=== PATIENT | female | born 1965 | race Caucasian/White ===

== ENCOUNTER 2023-07-22 16:46 | Inpatient (IN) | payer BC, SELFPAY ==
[2023-07-22] VITALS (8 sets, daily range): BP systolic 133–167; BP diastolic 76–99; BMI 23.1
[2023-07-22 12:57] LABS: % Basophils 0.2 % (0-2); % Immature Granulocytes 0.5 % (0-0.5); % Lymphocytes 6.3 % (20.5-51.1); % Monocytes 4.8 % (1.7-9.3); % Neutrophils 88.2 % (42.2-75.2); Absolute Basophils 0.1 10^3/uL (0-0.2); Absolute Immature Granulocytes 0.1 10^3/uL (0-0.05); Absolute Lymphocytes 1.4 10^3/uL (1.2-3.4); Absolute Monocytes 1.1 10^3/uL (0.1-0.6); Absolute Neutrophils 19.3 10^3/uL (1.4-6.5); Hematocrit 41.1 % (37.0-47.0); Hemoglobin 14.9 g/dL (12.0-16.0); Mean Corp Hgb Conc. 36.3 g/dL (33.0-37.0); Mean Corpuscular Hgb 30.9 pg (27.0-31.0); Mean Corpuscular Volume 85.3 fL (81.0-99.0); Mean Platelet Volume 10.8 fL (7.4-10.4); Nucleated Red Blood Cells % 0 %; Platelet Count 310 10^3/uL (130-400); Red Blood Cell Count 4.82 10^6/uL (4.20-5.40); Red Cell Dist. Width 13.2 % (11.5-14.5); White Blood Cell Count 21.9 10^3/uL (4.8-10.8)
[2023-07-22 13:10] LABS: HCG, Serum Qualitative Screen Negative
[2023-07-22 13:13] LABS: ALT (SGPT) 20 U/L (0-35); AST (SGOT) 26 U/L (14-36); Albumin 4.5 g/dl (3.5-5.0); Alkaline Phosphatase 81 U/L (38-126); Blood Urea Nitrogen 24 mg/dl (7-17); Calcium 9.6 mg/dl (8.4-10.2); Carbon Dioxide 21 mmol/L (22-30); Chloride 106 mmol/L (98-107); Glucose 132 mg/dl (70-99); Lipase 32 U/L (23-300); Sodium 137 mmol/L (135-145); Total Bilirubin 1.2 mg/dl (0.2-1.3); Total Protein 7.4 g/dl (6.3-8.2); eGFR > 60.00
[2023-07-22] MEDS: ZOFRAN 4 MG IV (13:50)
[2023-07-22] MEDS: DILAUDID 1 MG IV (13:50)
[2023-07-22] MEDS: NSS 2000 IV (13:50)
--- NOTE | 2023-07-22 14:32 | ED.GENMED ---
History of Present Illness
General
Chief Complaint: Abdominal Pain
Source: patient and family
Exam Limitations: clinical condition
Time Seen by Provider: 07/22/23 13:32
Nursing documentation reviewed up to this point in time: agreed with
Travel History
Have you had any contact with someone who has COVID-19?: No
Do you have any symptoms of coronavirus? Fever > 100 degrees, chills, cough, shortness of breath, sore throat, loss of taste or smell, muscle aches, or headache?: No
History of Present Illness
History of Present Illness:
pt is a 57 y/o F with h/o HTN
no previous abd surgeries
here with n/v/d that started yesterday afternoon
details are sparce, pt does not feel well and is in distress
she thinks she has vomited > 50 times
bilious emesis at the end
no blood in vomit
she has had a lot of watery diarrhea as well
no C diff RF
no h/o bowel problems
having diffuse abdominal pain and feels very dehdyratied
no fever/chills.
Past History
Past History
ED Past Medical History: HTN
ED Past Surgical History: None
Social History
Tobacco: Non-smoker
Alcohol: None
Drug: None
Personal:
Living: with family
Review of Systems
Review of Systems
Allergies reviewed?: Yes
All Other Systems: Not applicable
Phy Exam
Physical Exam
Physical Exam:
GENERAL: Alert , moaning, uincomfortable, moderate distress
EYE: pupils equal and reactive
NECK: Supple
ENT: o/p clr, very dry mouth
CARDIAC: Regular rate and rhythm .
LUNGS: Clear breath sounds bilaterally, no acute respiratory distress, no wheezes/rales/rhonchi
ABDOMEN: Soft, diffuse, more upper and lower , no r/g, no cvat, normal bowel sounds
NEUROLOGICAL: Alert and oriented, no focal neuro deficits
SKIN: Warm and dry, skin intact.
MUSCULOSKELETAL: No edema, well perfused.
PSYCH: Normal and appropriate interaction.
Course
Orders/Labs/Results
Orders:
Orders
07/22/23 Lunch
NPO
Allow oral meds: Yes
Allow clear liquids: Sips of Clears
NPO with Ice Chips: Yes
07/22/23 12:47
Test Result ONCE
07/22/23 12:48
Complete Blood Count/With Diff Urgent
Comprehensive Metabolic Panel Urgent
HCG, Serum Qualitative Screen Urgent
Lipase Urgent
07/22/23 13:46
CT Abd/Pel (IV only)-DH only Urgent
Comment:
Reason For Exam: severe nausea/vomiting/diarrhea
HYDROmorphone [Dilaudid] 1 mg IV NOW STA
Ondansetron Injectable [Zofran] 4 mg IV NOW STA
07/22/23 13:47
STOOL [C difficile Antigen & Toxins] Urgent
JANA Source: Feces/Stool
Specimen Description:
Date Specimen was Collected: 07/22/23
Time Specimen was Collected: 16:21
0.9% Sodium Chloride 1000 ml [Nss] 2,000 ml IV BOLUS
07/22/23 13:48
Norovirus by PCR Urgent
JANA Source: Feces/Stool
Specimen Description:
Date Specimen was Collected: 07/22/23
Time Specimen was Collected: 16:21
07/22/23 15:16
Lactic Acid Urgent
07/22/23 15:55
Ampicillin/Sulbactam 3 G [Unasyn] 3 gm 0.9% Sodium Chloride 100 ml [Nss] 100 ml IV NOW
07/22/23 16:26
Stool Culture Urgent
JANA Source: Feces/Stool
Specimen Description:
Date Specimen was Collected: 07/22/23
Time Specimen was Collected: 16:21
07/22/23 16:35
Admit/Transfer Patient As Directed
Co-Sign Provider:
Level of Care: Inpatient admission
Assign to:: Medical/Surgical
Physician / Group: Hospitalist
Diagnosis: Acute colitis
Reason for Hospitalization: Severe colitis
Expected length of stay greater than two midnights?: Yes
ELOS- Estimated Length of Stay in days: 2
I certify the patient meets the requirements for IP care: Yes
07/22/23 16:36
Code Status As Directed
Resuscitation Status: Full Code
07/22/23 18:11
Acetaminophen [Tylenol] 650 mg PO Q4HPRN PRN
Dextrose 5%/Lactringers 1000ML [D5lr] 1,000 ml IV 125 mls/hr
Enoxaparin Sodium [Lovenox] 40 mg SC QPM
HYDROmorphone [Dilaudid] 0.5 mg IV Q4HPRN PRN
Ketorolac [Toradol] 10 mg IV Q6HPRN PRN
Ondansetron Injectable [Zofran] 4 mg IV Q6HPRN PRN
07/22/23 18:11
Activity As Directed
Activity Level: With Assistance
Vital Signs As Directed
Frequency: Per unit guidelines
DX Deep Vein Thrombosis Video Routine
07/22/23 22:00
Ampicillin/Sulbactam 3 G [Unasyn] 3 gm 0.9% Sodium Chloride 100 ml [Nss] 100 ml IV Q6H
07/23/23 06:00
Basic Metabolic Panel IN AM
Complete Blood Count/No Diff IN AM
07/23/23 08:00
Lisinopril [Zestril] 20 mg PO DAILY
Abnormal Lab Results
07/22/23
12:48
WBC 21.9 H 10^3/uL
(4.8-10.8)
MPV 10.8 H fL
(7.4-10.4)
Abs Immat Gran (auto) 0.1 H 10^3/uL
(0-0.05)
Absolute Neuts (auto) 19.3 H 10^3/uL
(1.4-6.5)
Absolute Monos (auto) 1.1 H 10^3/uL
(0.1-0.6)
Neutrophils % 88.2 H %
(42.2-75.2)
Lymphocytes % 6.3 L %
(20.5-51.1)
Carbon Dioxide 21 L mmol/L
(22-30)
BUN 24 H mg/dl
(7-17)
Glucose 132 H mg/dl
(70-99)
07/22/23 12:48
07/22/23 12:48
Vital Signs
Initial and Last Documented VS:
Initial Vital Signs
Temp
98.7 F
07/22/23 12:43
Last Documented Vital Signs
Temp Pulse Resp BP Pulse Ox
97.5 F 76 16 164/97 100
07/22/23 18:15 07/22/23 18:15 07/22/23 18:15 07/22/23 18:15 07/22/23 18:15
MDM/Problems Addressed
Differential Diagnosis Includes:
colitis, norovirus, c diff
MDM/Problems Addressed:
57 y/o F with n/v/d and abd pain since last night
severe vomiting and moderate diarrhea
severe abdominal pain
no fever
no rf for C diff
mild tendneress nonfocal on exam
very dry mm
wbc 21k
bicarb 21
ct shows severe colitis
stool studies pending
will admit
*Critical Care Note
Total Time (30-74mins, 75-104mins- exclusive of procedures): Not Applicable
ED Attending Note
-
Portions of this chart may have been created with voice recognition software.� Occasional wrong word or��sound alike� substitutions may have occurred due to the inherent limitations of voice recognition software.
Discharge Plan
Departure
Patient Disposition: Admit
Date of Disposition: 07/22/23
Time of Disposition: 14:57
Admit to: Med/Surg
Presentation/result/management discussed w/ accepting MD/DO: Hospitalist
Condition: Fair
Covid-19: Not Applicable
Discharge Problem:
Colitis
Interventions
Interventions:
*Risk Screen - Suicide Last Done: 07/22/23 18:45
*General Assessment Last Done: 07/22/23 12:43
*Neglect/Abuse Screening Last Done: 07/22/23 12:43
ED- Fall Risk Assessment Last Done: 07/22/23 12:43
*ED COVID-19 Vaccine History Last Done: 07/22/23 18:45
*Nursing Disposition Last Done: 07/22/23 17:33
WZ-Zeheqd-Vegyqtoaxr Assessment Last Done: 07/22/23 12:43
Discharge Date and Time
Discharge Date/Time: 07/22/23 18:09
--- NOTE | 2023-07-22 16:15 | HPS.HSE ---
Family Physician
-
Family Physician: Rodri Gibbs
Chief Complaint
-
Nausea vomiting diarrhea abdominal pain
History of Present Illness
This is a 57-year-old female with past medical history significant for hypertension presenting to the emergency department with 1 day of abdominal symptoms.
Patient reports sudden onset of nausea and vomiting yesterday at around the time. She went to the bathroom and bathroom in the bathroom for several hours due to continuous vomiting. She then started having watery diarrhea and reports having
multiple episodes over the last 24 hours. It was nonbloody. Vomiting nonbloody and nonbilious. She reported chills but no darlene fevers at home. She reports abdominal pain in the epigastric region as well as in the bilateral lower quadrants.
Denies any sick contacts. No recent travels. She denies any recent antibiotic use. She denies any recent sensation. She has no personal history of cancer. She is not on any immunosuppressants. Family hx notable for daughter with Crohns
colitis.
She had a colonoscopy within the last 4 years. Denies any h/o diverticular disease. No intraabdominal surgeries. Unable to tolerate po in last 24 hours and reports feeling parched.
Arrival in the emergency department she was afebrile, normotensive and tachycardic to the low 100s. Oxygen saturation was 95 to 100% on room air. Labs were notable for a leukocytosis of 21,000 with a normal hemoglobin and platelet count.
Chemistries with essentially unremarkable. Lactic acid was normal at 1.0.
The CTA of the abdomen and pelvis with contrast shows a severe left-sided colitis.
Medical History
Past Medical History
Past Medical History: Reports HTN
Past Surgical History: Reports None
Social History
Tobacco: Non-smoker
Alcohol: Occasional
Drug: None
Personal:
Living: With Family
Employment: Employed
Family History
Family History: Diabetes and Other (Daughter with Crohns colitis. )
Allergies / Home Medications
Allergies reflects when Allergies were last updated in [facility].
Home Medications with original date entered in [facility]
Allergy/Medication List:
Allergies
Allergy/AdvReac Type Severity Reaction Status Date / Time
No Known Allergies Allergy Unverified 07/22/23 12:42
Home Medications
lisinopril 20 mg tablet 20 mg PO DAILY 07/22/23
Review of Systems
-
History Source: Patient
Constitutional: Reports No Symptoms
EENT: Reports No Symptoms
Respiratory: Reports No Symptoms
Cardiac: Reports No Symptoms
Abdomen/GI: Reports Abdominal Pain, Nausea, Vomiting and Diarrhea
: Reports No Symptoms
Musculoskeletal: Reports No Symptoms
Skin: Reports No Symptoms
Neurological: Reports No Symptoms
Endocrine: Reports No Symptoms
Hematologic/Lymphatic: Reports No Symptoms
Psych: Reports No Symptoms
Physical Exam
Vital Signs
Vital Signs
Temp Pulse Resp BP Pulse Ox
98.7 F 86 18 141/83 85
07/22/23 12:43 07/22/23 14:00 07/22/23 14:00 07/22/23 14:00 07/22/23 14:00
Physical Exam
General: Well Developed, Well Nourished, Comfortable and Conversant
HEENT: NormoCephalic, Anicteric, Moist mucous membranes, PERRLA and [place] Conjunctivae
Respiratory: Clear
Cardiac: S1/S2 and Tachycardia
Breast: Deferred by me
GI: Soft, Non Distended, Normal Bowel Sounds and Tender
Rectal: Deferred by Provider
Genito-urinary: Deferred by me
Musculoskeletal: No Clubbing, No Cyanosis and No Edema
Skin: Warm and Dry
Neuro: AO x 3
Hematologic/Lymphatic: No Lymphadenopathy
Psych: Calm
Laboratory Results
-
07/22/23 12:48
07/22/23 12:48
Laboratory Results
Lactic Acid 1.0 mmol/L (0.7-2.0) 07/22/23 15:16
Total Bilirubin 1.2 mg/dl (0.2-1.3) 07/22/23 12:48
AST 26 U/L (14-36) 07/22/23 12:48
ALT 20 U/L (0-35) 07/22/23 12:48
Alkaline Phosphatase 81 U/L (38-126) 07/22/23 12:48
Lipase 32 U/L (23-300) 07/22/23 12:48
Data Reviewed
-
CT Scan: Report Reviewed by me
Lab Data: Labs Reviewed by me
Old Records: Reviewed
Impression/Plan
-
IMPRESSION:
PLAN:
1. Acute left sided colitis - Patient with acute onset abdominal pain, nausea, vomiting and diarrhea. Tenderness to palpation without rebound or guarding. CT with severe colitis but no perforation or intraabdominal gas. Leukocytosis to 21.
Normal lactic acid. No known risk factors for community acquired intraabdominal infection. Hemodynamically stable and afebrile at this time. Suspect acute infectious colitis of bacterial or viral etiology. Less likely inflammatory colitis. No
h/o diverticular disease. No bleeding suggestive of ischemic colitis.
- admit to [facility]
- NPO except ICE chips and oral meds with sips of water for now
- Stool culture, wbc and Cdiff, check for norovirus (unlikely)
- agree with continuing Unasyn given possibility of bacterial colitis.
- serial examination
- blood cultures and repeat imaging if febrile
- IV fluids with LR at 125 ml/hr for now
- continue lisinopril in am
DVT PPX with lovenox sq
Full code
[2023-07-22] MEDS: UNASYN IV ×2 (16:28→21:46)
--- NOTE | 2023-07-22 17:32 | EDRN ---
float: report written and tubed to [facility] for primary nurse. [facility] staff notified by phone.
[2023-07-22] MEDS: D5LR 1000 IV (18:37)
[2023-07-22] MEDS: LOVENOX 40 MG SC (19:40)
[2023-07-22] MEDS: DILAUDID 0.5 MG IV (19:40)
[2023-07-23] MEDS: DILAUDID 0.5 MG IV ×2 (01:57→20:53)
[2023-07-23] MEDS: D5LR 1000 IV (03:50)
[2023-07-23] MEDS: UNASYN IV (03:50)
[2023-07-23 07:29] LABS: Hematocrit 34.8 % (37.0-47.0); Hemoglobin 11.9 g/dL (12.0-16.0); Mean Corp Hgb Conc. 34.2 g/dL (33.0-37.0); Mean Corpuscular Hgb 30.8 pg (27.0-31.0); Mean Corpuscular Volume 90.2 fL (81.0-99.0); Mean Platelet Volume 11.3 fL (7.4-10.4); Platelet Count 210 10^3/uL (130-400); Red Blood Cell Count 3.86 10^6/uL (4.20-5.40); Red Cell Dist. Width 13.7 % (11.5-14.5); White Blood Cell Count 16.1 10^3/uL (4.8-10.8)
[2023-07-23 07:54] VITALS: BP 160/93
[2023-07-23 08:04] LABS: Blood Urea Nitrogen 11 mg/dl (7-17); Calcium 8.2 mg/dl (8.4-10.2); Carbon Dioxide 25 mmol/L (22-30); Chloride 105 mmol/L (98-107); Estimated Creatinine Clearance 71 ml/min; Glucose 100 mg/dl (70-99); Potassium 3.4 mmol/L (3.5-5.1); Sodium 137 mmol/L (135-145); eGFR > 60.00
[2023-07-23] MEDS: TORADOL 10 MG IV ×2 (09:08→15:04)
[2023-07-23] MEDS: ZESTRIL 20 MG PO (09:08)
[2023-07-23] MEDS: 0.45% NACL with KCL 20 MEQ 1000 IV (09:10)
[2023-07-23] MEDS: ROCEPHIN 1000 MG IV (09:23)
[2023-07-23] MEDS: STERILE WATER FOR INJECTION 10 ML IV (09:23)
[2023-07-23] MEDS: FLAGYL 500 MG 100 IV ×3 (09:23→23:26)
[2023-07-23] MEDS: KCL 160 MEQ IV (11:15)
[2023-07-23 11:59] VITALS: BP 138/85
--- NOTE | 2023-07-23 13:12 | CM ---
Reviewed chart, called patient to obtain information for assessment. Patient stated that she lives with her spouse in a two story home with two steps to enter. She described herself as independent with her ADLs and personal care as well as dressing,
bathing and she ambulates without use of an assistive device. 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
Patient denied any DME in her home.
She has never had VN services. She has never been to a SNF.
Patient has a prescription plan and uses [facility] on [address] in [place].
Her PCP is Dr. Rodri Gibbs.
Patient stated that physically she feels she is at baseline and would like to return home when medically stable.
Plan: Case management will continue to follow and assist with discharge planning. Home when cleared.
[2023-07-23] MEDS: 0.45%NACL 1000 IV ×2 (13:26→21:37)
[2023-07-23] MEDS: TYLENOL 650 MG PO (13:26)
--- NOTE | 2023-07-23 15:04 | W.PN.HOSP.TC ---
Today's Communication/Plan
-
IV fluids, IV antibiotics.
Assessment / Plan
Assessment / Plan
Physical exam:
General: Acutely ill. Nontoxic.
HEENT: Normocephalic, Atraumatic and Moist Mucous Membranes
Respiratory: Clear to Auscultation; Negative Wheezes, Rales or Rhonchi
Cardiac: Regular Rhythm and S1/S2
GI: Soft, bowel sounds normal, mild diffuse tender and Nondistended
Musculoskeletal: No Clubbing, No Cyanosis and No Edema
Neuro: Awake, Alert and Oriented
Psych: Calm
A/P:
Acute likely infectious colitis:
-C. difficile negative
-Follow-up rest of stool cultures/studies.
-WBC 21.9-->16.1
-Seen and reviewed CT scan of the abdomen
-Supportive care with hydration, pain control, antibiotics, and antiemetics
-Patient tells me she had a colonoscopy about 4 years ago that was unremarkable per patient report.
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
-Continue IV fluid
-Continue n.p.o. and will start clear liquid diet tomorrow
-Continue IV antibiotics but switch to IV Rocephin and Flagyl
-Will give her some time to recover and we also discussed if she would fail to improve we would then consider GI evaluation.
-Discussed with family at bedside
Hypertension:
-Continue lisinopril 20 mg p.o. daily
-Monitor blood pressure and adjust medications accordingly
Hypokalemia:
-Replete and trend
Anemia:
-Dilutional component
-Hemoglobin 11.9
-Continue to monitor
DVT prophylaxis:
Lovenox SQ
CODE STATUS:
Full code
Anticipated Discharge: 24 - 48 hours
Subjective/Interval History
-
Date of Service: July 23, 2023
Patient still has some abdominal discomfort and some nausea and decreased appetite. Diarrhea slowing down. Afebrile. No arthralgias or any rash.
Objective Data
-
Labs:
Laboratory Results
07/23/23
05:54
WBC 16.1 H
Hgb 11.9 L D
Hct 34.8 L
Plt Count 210 D
Sodium 137
Potassium 3.4 L
Chloride 105
Carbon Dioxide 25
BUN 11
Creatinine 0.7
Glucose 100 H
Calcium 8.2 L
Vital Signs:
Vital Signs
Temp Pulse Resp BP Pulse Ox
99.7 F 88 16 138/85 99
07/23/23 07:54 07/23/23 07:54 07/23/23 07:54 07/23/23 11:59 07/23/23 07:54
I&O
07/22/23 07/23/23 07/24/23
06:59 06:59 06:59
Intake Total 1919
Balance 1919
Review of Systems
-
All other systems: Reviewed and negative
[2023-07-23 15:28] VITALS: BP 139/87
[2023-07-23] MEDS: LOVENOX 40 MG SC (17:53)
[2023-07-23 22:55] VITALS: BP 119/80
[2023-07-24] MEDS: 0.45%NACL 1000 IV (06:35)
[2023-07-24] MEDS: TORADOL 10 MG IV ×2 (06:42→16:07)
[2023-07-24 06:54] LABS: % Basophils 0.4 % (0-2); % Eosinophils 0.7 % (0-6); % Immature Granulocytes 0.5 % (0-0.5); % Lymphocytes 8.2 % (20.5-51.1); % Monocytes 7.4 % (1.7-9.3); % Neutrophils 82.8 % (42.2-75.2); Absolute Basophils 0.1 10^3/uL (0-0.2); Absolute Eosinophils 0.1 10^3/uL (0-0.7); Absolute Immature Granulocytes 0.1 10^3/uL (0-0.05); Absolute Monocytes 0.9 10^3/uL (0.1-0.6); Absolute Neutrophils 9.9 10^3/uL (1.4-6.5); Hematocrit 31.7 % (37.0-47.0); Hemoglobin 10.7 g/dL (12.0-16.0); Mean Corp Hgb Conc. 33.8 g/dL (33.0-37.0); Mean Corpuscular Hgb 30.6 pg (27.0-31.0); Mean Corpuscular Volume 90.6 fL (81.0-99.0); Mean Platelet Volume 11.5 fL (7.4-10.4); Nucleated Red Blood Cells % 0 %; Platelet Count 158 10^3/uL (130-400); Red Cell Dist. Width 13.4 % (11.5-14.5)
[2023-07-24 07:00] VITALS: BP 144/90
[2023-07-24 07:06] LABS: Blood Urea Nitrogen 10 mg/dl (7-17); Calcium 8.1 mg/dl (8.4-10.2); Carbon Dioxide 19 mmol/L (22-30); Chloride 107 mmol/L (98-107); Estimated Creatinine Clearance 71 ml/min; Glucose 62 mg/dl (70-99); Magnesium 1.9 mg/dl (1.6-2.3); Potassium 3.9 mmol/L (3.5-5.1); Sodium 136 mmol/L (135-145); eGFR > 60.00
--- NOTE | 2023-07-24 07:59 | W.PN.HOSP.TC ---
Addendum entered and electronically signed by Jaime Ferris MD 07/24/23 14:36:
Sepsis POA
Original Note:
Today's Communication/Plan
-
Change IV fluids to D5 and normal saline
Clear liquids today
Continue to monitor leukocytosis and electrolytes
Continue ceftriaxone and metronidazole
Await finalization of stool cultures
Assessment / Plan
Assessment / Plan
Physical exam:
General: Acutely ill. Nontoxic.
HEENT: Normocephalic, Atraumatic and Moist Mucous Membranes
Respiratory: Clear to Auscultation; Negative Wheezes, Rales or Rhonchi
Cardiac: Regular Rhythm and S1/S2
GI: Soft, bowel sounds normal, mild diffuse tender and Nondistended
Musculoskeletal: No Clubbing, No Cyanosis and No Edema
Neuro: Awake, Alert and Oriented
Psych: Calm
A/P:
Acute likely infectious colitis:
-C. difficile negative
-Follow-up rest of stool cultures/studies.
-WBC 21.9-->16.1>> 12.0
-Seen and reviewed CT scan of the abdomen
-Supportive care with hydration, pain control, antibiotics, and antiemetics
-Patient tells me she had a colonoscopy about 4 years ago that was unremarkable per patient report.
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
-Continue IV fluid
-Start clear liquids today
-Continue IV antibiotics but switch to IV Rocephin and Flagyl
-Will give her some time to recover and we also discussed if she would fail to improve we would then consider GI evaluation.
-Discussed with family at bedside
Hypertension:
-Continue lisinopril 20 mg p.o. daily
-Monitor blood pressure and adjust medications accordingly
Hypokalemia:
-Replete and trend
Anemia:
-Dilutional component
-Hemoglobin 11.9
-Continue to monitor
DVT prophylaxis:
Lovenox SQ
CODE STATUS:
Full code
Anticipated Discharge: 24 - 48 hours
Subjective/Interval History
-
Date of Service: July 24, 2023
Storms preparing especially when she coughs/couple loose bowel movements no fever or chills.
Objective Data
-
Labs:
Laboratory Results
07/24/23
05:59
WBC 12.0 H
Hgb 10.7 L
Hct 31.7 L
Plt Count 158 D
Sodium 136
Potassium 3.9
Chloride 107
Carbon Dioxide 19 L
BUN 10
Creatinine 0.7
Glucose 62 L
Calcium 8.1 L
Vital Signs:
Vital Signs
Temp Pulse Resp BP Pulse Ox
99.1 F 93 17 144/90 97
07/24/23 07:00 07/24/23 07:00 07/24/23 07:00 07/24/23 07:00 07/24/23 07:00
I&O
07/23/23 07/24/23 07/25/23
06:59 06:59 06:59
Intake Total 1919 1500 / 1500
Balance 1919 1500 / 1500
Review of Systems
-
History Source: Patient
Constitutional: Reports No Symptoms
EENT: Reports No Symptoms Reported
Respiratory: Reports No Symptoms
Abdomen/GI: Reports Abdominal Pain, Nausea, Diarrhea and Anorexia
Physical Exam
-
General: Well Developed
HEENT: Normocephalic
Respiratory: Clear to Auscultation
Cardiac: Regular Rhythm
GI: Soft and Tender (Left side)
Skin: Warm
Neuro: Awake, Alert and Oriented
Psych: Calm
Data Reviewed
-
Total Time Spent with Patient (in minutes): 56
Labs: Labs Reviewed by me (Bicarb 19 potassium 3.9 white count down to 12 from 16)
[2023-07-24] MEDS: ZESTRIL 20 MG PO (08:08)
[2023-07-24] MEDS: FLAGYL 500 MG 100 IV ×3 (08:08→23:54)
[2023-07-24] MEDS: D5/0.9% SODIUM CHLORIDE 1000 IV ×2 (08:11→23:57)
[2023-07-24] MEDS: STERILE WATER FOR INJECTION 10 ML IV (10:40)
[2023-07-24] MEDS: ROCEPHIN 1000 MG IV (10:41)
--- NOTE | 2023-07-24 13:34 | PN.CDI ---
CDI
- -
CDI:
Physician Documentation Request
Admit Date: 07/22/23 16:46
Dear Doctor Josy,
Patient admitted with infectious colitis.
07/23 Hospitalist PN: 'Continue to monitor leukocytosis and electrolytes. Continue ceftriaxone and metronidazole'
Laboratory Tests
07/22/23
12:48
WBC 21.9 H
07/22/23
13:30 07/22/23
15:00 07/22/23
16:00
Pulse 101 110 122
07/22/23
13:05 07/22/23
13:45 07/22/23
14:23
Resp Rate 23 21 25
Please clarify which of the following most accurately describes the status of the patient's infection:
Sepsis, POA
- Systemic manifestations of infection, with 2 or more SIRS criteria which include:
- Fever >100.4 degrees F or hypothermia < 96.8 degrees F
- Leukocytosis - WBC > 12,000 or leukopenia - WBC < 4,000 or > 10% bands
- Tachycardia > 90 beats per minute
- Tachypnea - RR > 20 breaths per minute or PaCO2 , 32mmHg
Source: Merck Manual 2013
Localized Infection Only, Without Systemic Illness
Other
Use of terms such as suspected, likely, concern for, or probable (associated with a specific diagnosis that is being evaluated, monitored, or treated as if it exists) are acceptable and can be coded in the inpatient setting, when documented at the
time of discharge.
Thank you,
Melvi Chahal RN, BSN
CDI Specialist
Available via [employer] text
Please use your independent medical judgment in providing your response.
[2023-07-24 15:00] VITALS: BP 158/95
[2023-07-24] MEDS: LOVENOX 40 MG SC (17:14)
[2023-07-24] MEDS: DILAUDID 0.5 MG IV (20:05)
[2023-07-24 23:46] VITALS: BP 144/95
[2023-07-24] MEDS: TYLENOL 650 MG PO (23:53)
[2023-07-25] MEDS: TYLENOL 650 MG PO (06:08)
[2023-07-25 06:57] LABS: Hematocrit 30.9 % (37.0-47.0); Hemoglobin 10.6 g/dL (12.0-16.0); Mean Corp Hgb Conc. 34.3 g/dL (33.0-37.0); Mean Corpuscular Hgb 30.7 pg (27.0-31.0); Mean Corpuscular Volume 89.6 fL (81.0-99.0); Platelet Count 175 10^3/uL (130-400); Red Blood Cell Count 3.45 10^6/uL (4.20-5.40); Red Cell Dist. Width 13.2 % (11.5-14.5); White Blood Cell Count 9.4 10^3/uL (4.8-10.8)
[2023-07-25 06:58] LABS: Blood Urea Nitrogen 2 mg/dl (7-17); Calcium 7.7 mg/dl (8.4-10.2); Carbon Dioxide 24 mmol/L (22-30); Chloride 109 mmol/L (98-107); Estimated Creatinine Clearance 71 ml/min; Glucose 110 mg/dl (70-99); Potassium 3.3 mmol/L (3.5-5.1); Sodium 137 mmol/L (135-145); eGFR > 60.00
[2023-07-25 07:00] VITALS: BP 141/98
[2023-07-25] MEDS: FLAGYL 500 MG 100 IV ×3 (08:08→23:06)
[2023-07-25] MEDS: ZESTRIL 20 MG PO (08:08)
[2023-07-25] MEDS: TORADOL 10 MG IV ×2 (08:18→14:23)
[2023-07-25] MEDS: ZOFRAN 4 MG IV (08:20)
--- NOTE | 2023-07-25 08:30 | W.PN.HOSP.TC ---
Today's Communication/Plan
-
Continue present course of antibiotics
Replete potassium
Obtain GI consultation
Would not advance past clear liquids as yet
Assessment / Plan
Assessment / Plan
Physical exam:
General: Acutely ill. Nontoxic.
HEENT: Normocephalic, Atraumatic and Moist Mucous Membranes
Respiratory: Clear to Auscultation; Negative Wheezes, Rales or Rhonchi
Cardiac: Regular Rhythm and S1/S2
GI: Soft, bowel sounds normal, mild diffuse tender and Nondistended
Musculoskeletal: No Clubbing, No Cyanosis and No Edema
Neuro: Awake, Alert and Oriented
Psych: Calm
A/P:
Acute likely infectious colitis:
-C. difficile negative
-Norovirus negative
-Follow-up rest of stool cultures/studies.
-WBC 21.9-->16.1>> 12.0>> 9.5
-Seen and reviewed CT scan of the abdomen
-Supportive care with hydration, pain control, antibiotics, and antiemetics
-Patient tells me she had a colonoscopy about 4 years ago that was unremarkable per patient report.
-Her clinical symptoms were triggered after she ate food at her workplace just couple days ago [employer].
-Continue IV fluid
-S clear liquids today
-Continue IV antibiotics but switch to IV Rocephin and Flagyl
-Will give her some time to recover and we also discussed if she would fail to improve we would then consider GI evaluation.
-Discussed with family at bedside/GI consult as continues to have left-sided abdominal pain in spite of resolution of leukocytosis
Hypertension:
-Continue lisinopril 20 mg p.o. daily
-Monitor blood pressure and adjust medications accordingly
Hypokalemia:
-Replete and trend
Anemia:
-Dilutional component
-Hemoglobin 11.9
-Continue to monitor
DVT prophylaxis:
Lovenox SQ
CODE STATUS:
Full code
Anticipated Discharge: 24 - 48 hours
Subjective/Interval History
-
Date of Service: July 25, 2023
Persisting loose and diarrheal stools with continued abdominal cramping anytime she coughs or takes deep breath low-grade fever
Objective Data
-
Labs:
Laboratory Results
07/25/23
05:45
WBC 9.4
Hgb 10.6 L
Hct 30.9 L
Plt Count 175
Sodium 137
Potassium 3.3 L
Chloride 109 H
Carbon Dioxide 24
BUN 2 L
Creatinine 0.7
Glucose 110 H
Calcium 7.7 L
Vital Signs:
Vital Signs
Temp Pulse Resp BP Pulse Ox
100.2 F 90 17 141/98 98
07/25/23 07:00 07/25/23 08:08 07/25/23 07:00 07/25/23 08:08 07/25/23 07:00
I&O
07/24/23 07/25/23 07/26/23
06:59 06:59 06:59
Intake Total 1500 / 1500 2260 / 2260
Balance 1500 / 1500 2260 / 2260
Review of Systems
-
History Source: Patient
All other systems: Reviewed and negative
Constitutional: Reports No Symptoms
EENT: Reports No Symptoms Reported
Respiratory: Reports No Symptoms
Cardiac: Reports No Symptoms
Abdomen/GI: Reports Abdominal Pain, Nausea, Diarrhea and Anorexia
Physical Exam
-
General: Well Developed
HEENT: Normocephalic
Respiratory: Clear to Auscultation
Cardiac: Regular Rhythm
GI: Soft and Tender (Especially left side)
Skin: IV Access / Catheter Site
Neuro: Awake
Psych: Calm
Data Reviewed
-
Total Time Spent with Patient (in minutes): 56
Labs: Labs Reviewed by me (Potassium 3.3 white count down to normal at 9.5)
[2023-07-25] MEDS: KLOR-CON 20 MEQ PO (09:12)
[2023-07-25] MEDS: STERILE WATER FOR INJECTION 10 ML IV (09:13)
[2023-07-25] MEDS: ROCEPHIN 1000 MG IV (09:15)
[2023-07-25] MEDS: D5/0.9% SODIUM CHLORIDE 1000 IV (12:03)
--- NOTE | 2023-07-25 14:30 | CM ---
Patient continues to function at an independent level. Should have no skilled needs at time of discharge.
Plan: Case management will continue to follow and assist with discharge planning. Home when stable.
[2023-07-25 14:43] VITALS: BP 155/92
--- NOTE | 2023-07-25 15:35 | CON.GI ---
Addendum entered and electronically signed by Timmy Ortiz MD 07/25/23 19:03:
I saw and examined the patient.
The ANNEALING OVEN OPERATOR or PA's note was reviewed and I agree with the note.
Comment: 57-year-old female presenting with acute nausea, vomiting, diarrhea, fevers. Found to have leukocytosis and colitis on CT with severe left-sided colitis consistent with likely infectious versus inflammatory. Leukocytosis has improved with
antibiotics. She continues to have diarrhea although improving with less blood. She continues to have pain and bloating as well although this is also improving. She has no further vomiting and is only having nausea. Most likely suspect this is
infectious in etiology. Her stool studies are negative. She does mention she has some chronic left lower quadrant pain and irregular bowel movements. Less likely but could have inflammatory bowel disease although fever and nausea and vomiting
seems to be atypical and this seems to be more acute in onset. We will keep on a clear liquid diet. If she is not improving tomorrow, we will plan for flexible sigmoidoscopy on . If she is improving, we can advance her diet to low
residue. She does follow-up in [place] in the past in regards to her GI doctor. Continue antibiotics.
Original Note:
Consultation
-
Date/Time Consultation Requested: 07/24/23 1414
Date/Time Consultation Performed: 07/24/23 1515
Requesting Provider: Dr. Ferris
Performing Provider: Dr. Ortiz/FIDENCIO Valdez
Reason for Consultation: colitis
Medical History
Chief Complaint / HPI
Chief Complaint: n/v/d
History of Present Illness:
87-year-old female with past medical history hypertension on lisinopril presents to the emergency room with acute onset of nausea, vomiting and diarrhea. Asked to evaluate for colitis. Patient states that on Monday she was babysitting her
grandchildren and in the early evening she developed acute onset of the sensation as if she had have a bowel movement. This was diarrhea. She then felt as if she was going to vomit. She then had multiple episodes of nausea and vomiting that
lasted approximately 24 to 36 hours. She also had multiple episodes of diarrhea that persisted since that time. The diarrhea started out initially as brown and then proceeded to turn into brown with red. Then she had bloody diarrhea. After
approximately 24 hours of this she came to the emergency room. She denies any sick contacts, recent antibiotic use, travel, spoiled foods. Prior to this she states that she ate a vegetable sheridan. She does not recall what she ate for breakfast.
She had pizza for dinner that night. She did develop a low-grade fever last night however prior to that she denies any fevers, chills, melena, dysphagia or odynophagia. She denies any early satiety or unintentional weight loss. She does have a
family history inflammatory bowel disease in her mother and her daughter. She does have a family history of colon cancer in her mother. Her last colonoscopy was approximately 4 years ago. She is due for repeat in 1 year. She does get
intermittent left lower quadrant pain for the past couple years. She has not sought medical attention for this. She has no known surgeries. She denies any urinary complaints. Last evening she had aches associated with her fevers. She was
started on ceftriaxone and Flagyl since 07/22/2022. She did have a white count of 21.9 which has come down to 9.4. Her stool studies are negative for norovirus, negative for C. difficile, negative Salmonella, Shigella and E. coli. She had a CT of
the abdomen and pelvis with IV contrast only on 07/22/2023 that showed severe left-sided colitis, likely of infectious/inflammatory etiology. The patient was placed on a clear liquid diet 2 days ago the first day she had a couple sips and it made
her queasy so she stopped. She still had abdominal discomfort especially in the left side of the abdomen. She had no further bowel movements. Upon taking a more clear liquids yesterday she had stool with blood in it. And left lower quadrant
discomfort especially with defecation. Today she is tolerating a clear liquid diet with less discomfort. She had brown loose stool with red tinge in it.
Past Medical History
Past Medical History: HTN
Past Surgical History: None
Social History
Tobacco: Non-Smoker
Alcohol: None
Drug: None
Personal:
Living: With Family
Family History
Family History: Other (+ Crohns, daughter and Mother, Colon Ca mother)
Allergies / Home Medications
Allergy/AdvReac Type Severity Reaction Status Date / Time
No Known Allergies Allergy Unverified 07/22/23 12:42
Medication Instructions Recorded
lisinopril 20 mg tablet 20 mg PO DAILY Blood Pressure 07/22/23
Review of Systems
-
All other systems: A 12 pt ROS was Negative except as stated above in HPI
Vital Signs
Temp Pulse Resp BP Pulse Ox
98.0 F 86 17 155/92 98
07/25/23 14:43 07/25/23 14:43 07/25/23 14:43 07/25/23 14:43 07/25/23 14:43
Physical Exam
Exam
General: No Apparent Distress
HEENT: Normocephalic
Respiratory: Clear
Cardiac: Regular Rhythm
GI: Soft, Non Distended, Normal Bowel Sounds and Tender (LLQ)
Musculoskeletal: No Edema
Skin: Warm and Dry
Neuro: AO x 3
Psych: Calm
Results
WBC 9.4 10^3/uL (4.8-10.8) 07/25/23 05:45
Hgb 10.6 g/dL (12.0-16.0) L 07/25/23 05:45
Hct 30.9 % (37.0-47.0) L 07/25/23 05:45
MCV 89.6 fL (81.0-99.0) 07/25/23 05:45
Plt Count 175 10^3/uL (130-400) 07/25/23 05:45
Absolute Neuts (auto) 9.9 10^3/uL (1.4-6.5) H 07/24/23 05:59
Sodium 137 mmol/L (135-145) 07/25/23 05:45
Potassium 3.3 mmol/L (3.5-5.1) L 07/25/23 05:45
Chloride 109 mmol/L (98-107) H 07/25/23 05:45
Carbon Dioxide 24 mmol/L (22-30) 07/25/23 05:45
BUN 2 mg/dl (7-17) L 07/25/23 05:45
Creatinine 0.7 mg/dL (0.6-1.0) 07/25/23 05:45
Calcium 7.7 mg/dl (8.4-10.2) L 07/25/23 05:45
Total Bilirubin 1.2 mg/dl (0.2-1.3) 07/22/23 12:48
AST 26 U/L (14-36) 07/22/23 12:48
ALT 20 U/L (0-35) 07/22/23 12:48
Alkaline Phosphatase 81 U/L (38-126) 07/22/23 12:48
Lipase 32 U/L (23-300) 07/22/23 12:48
Diagnostic Image Results:
Prior GI Procedures:
EGD: never
Colonoscopy: 4 years ago, due again in 1 year.
Assessment / Plan
-
87-year-old female with past medical history hypertension on lisinopril presents to the emergency room with acute onset of nausea, vomiting and diarrhea. Asked to evaluate for colitis. She was started on ceftriaxone and Flagyl since 07/22/2022.
She did have a white count of 21.9 which has come down to 9.4. Her stool studies are negative for norovirus, negative for C. difficile, negative Salmonella, Shigella and E. coli. She had a CT of the abdomen and pelvis with IV contrast only on
07/22/2023 that showed severe left-sided colitis, likely of infectious/inflammatory etiology.
Impression:
Colitis-> likely infectious
Nausea and Vomiting->improved
Plan:
-Continue Abx
-Continue clears, advance as tolerated ? tomorrow
-Trend labs
-If with further fevers, increased pain or leukocytosis would repeat imaging
-Follow up with her primary GI for repeat colonoscopy in 2 months
-Discussed with IM Attending about fevers last pm and aches.
-Further recommendations to be forthcoming
-
-
Thank you for consultation and allowing me to participate in the patient's care. Please call the applications programmer GI physician during the after hours with any questions or concerns.
[2023-07-25] MEDS: LOVENOX 40 MG SC (17:43)
[2023-07-25] MEDS: DILAUDID 0.5 MG IV (23:23)
[2023-07-25] MEDS: FLUSH (NSS) 3 FLUSH IV (23:25)
[2023-07-26 00:06] VITALS: BP 160/95
[2023-07-26 06:02] LABS: Hematocrit 30.1 % (37.0-47.0); Hemoglobin 10.3 g/dL (12.0-16.0); Mean Corp Hgb Conc. 34.2 g/dL (33.0-37.0); Mean Corpuscular Hgb 30.5 pg (27.0-31.0); Mean Corpuscular Volume 89.1 fL (81.0-99.0); Mean Platelet Volume 10.9 fL (7.4-10.4); Platelet Count 168 10^3/uL (130-400); Red Blood Cell Count 3.38 10^6/uL (4.20-5.40); Red Cell Dist. Width 13.2 % (11.5-14.5); White Blood Cell Count 7.2 10^3/uL (4.8-10.8)
[2023-07-26 06:26] LABS: Blood Urea Nitrogen < 2 mg/dl (7-17); Calcium 8.1 mg/dl (8.4-10.2); Carbon Dioxide 25 mmol/L (22-30); Chloride 105 mmol/L (98-107); Estimated Creatinine Clearance 71 ml/min; Glucose 91 mg/dl (70-99); Potassium 3.2 mmol/L (3.5-5.1); Sodium 138 mmol/L (135-145); eGFR > 60.00
[2023-07-26 07:27] VITALS: BP 125/82
[2023-07-26] MEDS: FLAGYL 500 MG 100 IV ×2 (08:09→15:54)
[2023-07-26] MEDS: ZESTRIL 20 MG PO (08:09)
--- NOTE | 2023-07-26 09:07 | W.PN.HOSP.TC ---
Today's Communication/Plan
-
May be some slight improvement although continues to have diarrheal stools
Will try full liquid diet today/if need to refer back consideration for flex sig per GI
Leukocytosis resolved temp trends down ?
Assessment / Plan
Assessment / Plan
Physical exam:
General: Acutely ill. Nontoxic.
HEENT: Normocephalic, Atraumatic and Moist Mucous Membranes
Respiratory: Clear to Auscultation; Negative Wheezes, Rales or Rhonchi
Cardiac: Regular Rhythm and S1/S2
GI: Soft, bowel sounds normal, mild diffuse tender and Nondistended
Musculoskeletal: No Clubbing, No Cyanosis and No Edema
Neuro: Awake, Alert and Oriented
Psych: Calm
A/P:
Acute likely infectious colitis:
-C. difficile negative
-Norovirus negative
-Salmonella Shigella Campylobacter
-WBC 21.9-->16.1>> 12.0>> 9.5>> 7.2
-Seen and reviewed CT scan of the abdomen
-Supportive care with hydration, pain control, antibiotics, and antiemetics
-Patient tells me she had a colonoscopy about 4 years ago that was unremarkable per patient report.
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
-Continue IV fluid
-Full liquids
-Continue IV antibiotics but switch to IV Rocephin and Flagyl
-Will give her some time to recover and we also discussed if she would fail to improve we would then consider GI evaluation.
-/GI consult as continues to have left-sided abdominal pain in spite of resolution of leukocytosis/consideration toward flex sig with scopic by if no improvement
Hypertension:
-Continue lisinopril 20 mg p.o. daily
-Monitor blood pressure and adjust medications accordingly
Hypokalemia:
-Replete and trend
Anemia:
-Dilutional component
-Hemoglobin 11.9
-Continue to monitor
DVT prophylaxis:
Lovenox SQ
CODE STATUS:
Full code
Anticipated Discharge: Within 24 hours
Subjective/Interval History
-
Date of Service: July 26, 2023
Feels she is feeling a little bit better better able to move around in bed without eliciting abdominal pain she continues to have loose bowel movements is already had 5 this morning does want to try and advance the diet cautiously as she is quite
hesitant to do so
Objective Data
-
Labs:
Laboratory Results
07/26/23
05:45
WBC 7.2
Hgb 10.3 L
Hct 30.1 L
Plt Count 168
Sodium 138
Potassium 3.2 L
Chloride 105
Carbon Dioxide 25
BUN < 2 L
Creatinine 0.7
Glucose 91
Calcium 8.1 L
Vital Signs:
Vital Signs
Temp Pulse Resp BP Pulse Ox
98.2 F 73 16 125/82 98
07/26/23 07:27 07/26/23 07:27 07/26/23 07:27 07/26/23 07:27 07/26/23 07:27
I&O
07/25/23 07/26/23 07/27/23
06:59 06:59 06:59
Intake Total 2260 / 2260 670 / 670
Balance 2260 / 2260 670 / 670
Review of Systems
-
All other systems: Not reviewed unless documented
Constitutional: Reports No Symptoms
Respiratory: Reports No Symptoms
Abdomen/GI: Reports Abdominal Pain and Diarrhea
Physical Exam
-
General: Well Developed
HEENT: Normocephalic
Respiratory: Clear to Auscultation
Cardiac: Regular Rhythm
GI: Soft and Tender (Left more than right/no guarding or rebound)
Neuro: Awake, Alert, Oriented and AO x 3
Psych: Calm
Data Reviewed
-
Total Time Spent with Patient (in minutes): 45
Labs: Labs Reviewed by me (Leukocytosis now normalized. Hemoglobin 10.3)
[2023-07-26] MEDS: KLOR-CON 20 MEQ PO (09:27)
[2023-07-26] MEDS: ROCEPHIN 1000 MG IV (09:59)
[2023-07-26] MEDS: STERILE WATER FOR INJECTION 10 ML IV (09:59)
[2023-07-26] MEDS: IMODIUM 2 MG PO (10:55)
--- NOTE | 2023-07-26 13:56 | W.PN.GI.CBS2 ---
Addendum entered and electronically signed by Timmy Ortiz MD 07/26/23 14:47:
I saw and examined the patient.
The TERMINAL MAKEUP OPERATOR or PA's note was reviewed and I agree with the note.
Comment: 57-year-old female presenting with acute nausea, vomiting, diarrhea, fevers.� Found to have leukocytosis and colitis on CT with severe left-sided colitis consistent with likely infectious versus inflammatory.� Leukocytosis has improved with
antibiotics.� She continues to have diarrhea although improving with less blood.� She continues to have pain and bloating as well although this is also improving.� She has no further vomiting and is only having nausea.� Most likely suspect this is
infectious in etiology.� Her stool studies are negative.� She does mention she has some chronic left lower quadrant pain and irregular bowel movements.� Less likely but could have inflammatory bowel disease although fever and nausea and vomiting
seems to be atypical and this seems to be more acute in onset.� Improving today will advance to low residue diet. Did have 6-8 bm overnight but only one today (did take a dose of imodium would hold on additional). Pain/bloating present but less
so. She does follow-up in [place] in the past in regards to her GI doctor.� Continue antibiotics (would do total of 7 day course). Possible discharge in AM if continues to improve.
Original Note:
Today's Communication / Plan
-
per plan
Assessment / Plan
-
87-year-old female with past medical history hypertension on lisinopril presents to the emergency room with acute onset of nausea, vomiting and diarrhea. Asked to evaluate for colitis. She was started on ceftriaxone and Flagyl since 07/22/2022.
She did have a white count of 21.9 which has come down to 9.4. Her stool studies are negative for norovirus, negative for C. difficile, negative Salmonella, Shigella and E. coli. She had a CT of the abdomen and pelvis with IV contrast only on
07/22/2023 that showed severe left-sided colitis, likely of infectious/inflammatory etiology.
Impression:
Colitis-> likely infectious
Nausea and Vomiting->improved
Plan:
-Continue Abx
-Continue full liquids.
-Patient offered flex sig for tomorrow with continues diarrhea. Patient unsure and would like to see how lunch goes and will discuss with Dr. Ortiz.
-Follow up with her primary GI for repeat colonoscopy in 2 months. Also due for her routine screening colonoscopy per patient.
-Further recommendations to be forthcoming
Subjective
Subjective
Date of Service: July 26, 2023
Patient states that she is feeling a bit better today. Tolerating full liquid diet. She had 5 liquid BM today. No further blood. Hgb stable. Continues on Abx.
Objective
Data Reviewed
Laboratory Data:
Laboratory Results
07/26/23 05:45
07/26/23 05:45
Laboratory Results
Magnesium 1.9 mg/dl (1.6-2.3) 07/24/23 05:59
Total Bilirubin 1.2 mg/dl (0.2-1.3) 07/22/23 12:48
AST 26 U/L (14-36) 07/22/23 12:48
ALT 20 U/L (0-35) 07/22/23 12:48
Alkaline Phosphatase 81 U/L (38-126) 07/22/23 12:48
Lipase 32 U/L (23-300) 07/22/23 12:48
Vital Signs and I&O:
Vital Signs
Temp Pulse Resp BP Pulse Ox
98.2 F 73 16 125/82 98
07/26/23 07:27 07/26/23 07:27 07/26/23 07:27 07/26/23 07:27 07/26/23 07:27
I&O
07/25/23 07/26/23 07/27/23
06:59 06:59 06:59
Intake Total 2260 / 2260 670 / 670
Balance 2260 / 2260 670 / 670
Physical Exam
Physical Exam
HEENT: Anicteric
Cardiology: Normal Sinus Rhythm
Pulmonary: Clear
GI: Soft, Non Distended, Non Tender (mild LLQ tenderness) and Normal Bowel Sounds
Extremities: No Edema
Neuro: Non Focal
[2023-07-26 15:38] VITALS: BP 137/80
[2023-07-26] MEDS: LOVENOX 40 MG SC (17:56)
[2023-07-26 23:20] VITALS: BP 153/92
[2023-07-27] MEDS: FLAGYL 500 MG 100 IV ×2 (00:43→07:42)
[2023-07-27] MEDS: FLUSH (NSS) 2 FLUSH IV (00:44)
[2023-07-27 05:54] LABS: Hematocrit 30.9 % (37.0-47.0); Hemoglobin 10.9 g/dL (12.0-16.0); Mean Corp Hgb Conc. 35.3 g/dL (33.0-37.0); Mean Corpuscular Hgb 30.6 pg (27.0-31.0); Mean Corpuscular Volume 86.8 fL (81.0-99.0); Mean Platelet Volume 10.7 fL (7.4-10.4); Platelet Count 201 10^3/uL (130-400); Red Blood Cell Count 3.56 10^6/uL (4.20-5.40); Red Cell Dist. Width 13.2 % (11.5-14.5); White Blood Cell Count 5.2 10^3/uL (4.8-10.8)
[2023-07-27 06:18] LABS: Blood Urea Nitrogen 3 mg/dl (7-17); Calcium 8.5 mg/dl (8.4-10.2); Carbon Dioxide 29 mmol/L (22-30); Chloride 106 mmol/L (98-107); Estimated Creatinine Clearance 71 ml/min; Glucose 98 mg/dl (70-99); Potassium 3.4 mmol/L (3.5-5.1); Sodium 141 mmol/L (135-145); eGFR > 60.00
[2023-07-27] MEDS: ZESTRIL 20 MG PO (07:42)
[2023-07-27 07:43] VITALS: BP 145/86
--- NOTE | 2023-07-27 08:28 | W.PN.UPDATE ---
Update Note
Progress Note Update
He remains quite anxious on exam today her abdomen is significantly softer and less distended
Less frequency of diarrheal stooling tolerated full liquids and then low residue overnight
Low-grade temperature continues
Leukocytosis remains resolved
Potassium depleted again today will replete prior to proposed discharge
If can tolerate low residue diet this morning think she can be discharged after seen by GI she will need follow-up with a GI specialist of her choice
--- NOTE | 2023-07-27 08:37 | W.DS.TRANS ---
DC Summary - Bottle Tester
-
Discharge Instructions:
Discharge Diagnosis/Procedures Acute infectious colitis
Negative stool cultures
Diet Low Residue
Activity No restrictions
Driving Restrictions As prior to admission
Instructions:
Stand-Alone Forms:
Changes to Home Medications: No
Discharge Medications:
DC Medications w/original date entered in [facility]
lisinopril 20 mg tablet 20 mg PO DAILY Blood Pressure 07/22/23
cefdinir 300 mg capsule 300 mg PO BID Gastrointestinal issue #14 caps 07/27/23
metronidazole 500 mg tablet 500 mg PO BID Gastrointestinal issue #14 tabs 07/27/23
Home Medication Changes
cefdinir 300 mg capsule 300 mg PO BID Gastrointestinal issue #14 caps 07/27/23
metronidazole 500 mg tablet 500 mg PO BID Gastrointestinal issue #14 tabs 07/27/23
Pending Results: No
Total time spent discharging patient (in min): 37
[2023-07-27] MEDS: ROCEPHIN 1000 MG IV (10:05)
[2023-07-27] MEDS: STERILE WATER FOR INJECTION 10 ML IV (10:06)
--- NOTE | 2023-07-27 11:06 | W.PN.GI.CBS2 ---
Today's Communication / Plan
-
discharge, gi signing off
Assessment / Plan
-
57-year-old female presenting with acute nausea, vomiting, diarrhea, fevers.� Found to have leukocytosis and colitis on CT with severe left-sided colitis consistent with likely infectious versus inflammatory.� Leukocytosis has improved with
antibiotics.� She continues to have diarrhea although improving with less blood.� She continues to have pain and bloating as well although this is also improving.� She has no further vomiting and is only having nausea.� Most likely suspect this is
infectious in etiology.� Her stool studies are negative.� She does mention she has some chronic left lower quadrant pain and irregular bowel movements.� Less likely but could have inflammatory bowel disease although fever and nausea and vomiting
seems to be atypical and this seems to be more acute in onset.��Improving - plan discharge today.� She does follow-up in [place] in the past in regards to her GI doctor - due for cscope outpatient and counseled pt importance of follow up
outpatient.� Continue antibiotics (would do total of 7 day course).
Plan d/c today, d/w primary team, GI will sign off pls call with ?s.�
Subjective
Subjective
Date of Service: July 27, 2023
no BM overnight
One loose on this am
pain improving
Objective
Data Reviewed
Laboratory Data:
Laboratory Results
07/27/23 05:36
07/27/23 05:36
Laboratory Results
Magnesium 1.9 mg/dl (1.6-2.3) 07/24/23 05:59
Total Bilirubin 1.2 mg/dl (0.2-1.3) 07/22/23 12:48
AST 26 U/L (14-36) 07/22/23 12:48
ALT 20 U/L (0-35) 07/22/23 12:48
Alkaline Phosphatase 81 U/L (38-126) 07/22/23 12:48
Lipase 32 U/L (23-300) 07/22/23 12:48
Vital Signs and I&O:
Vital Signs
Temp Pulse Resp BP Pulse Ox
98.3 F 69 16 145/86 98
07/27/23 07:43 07/27/23 07:43 07/27/23 07:43 07/27/23 07:43 07/27/23 07:43
I&O
07/26/23 07/27/23 07/28/23
06:59 06:59 06:59
Intake Total 670 / 670 2039
Balance 670 / 670 2039
Physical Exam
Physical Exam
GI: Non Distended and Non Tender
--- NOTE | 2023-07-27 11:51 | W.DCSUMMARY ---
Discharge Summary
Discharge Data
Date of Admission: 07/22/23
Date of Discharge: 07/27/23
Total time spent discharging patient (in min): 39
-
Pending Results: No
Hospital Course
57-year-old female who presented on the date of admission with several days of acute nausea vomiting diarrhea and fevers initial presentation also noted leukocytosis and CT imaging showing left-sided colitis likely in relation to infectious source
versus inflammatory. She was admitted she was placed on IV antibiotic course with eventual transition to ceftriaxone metronidazole which resulted in resolution of leukocytosis she continues to have frequent diarrheal stooling and left-sided
quadrant abdominal pain with low-grade temperatures stool cultures all proved negative for growth including norovirus C. difficile Salmonella With Dr. Noel because of the ongoing issues with her left-sided abdominal pain I asked the
gastroenterology service to see if she would be a candidate to address possible inflammatory bowel disease however she continued to improve with lessening of her abdominal discomfort she has been able to tolerate a liquid to full diet and now low
residue diet overnight. GI feels that it although is less likely she has underlying inflammatory bowel disease felt that her presentation is more acute in keeping with an infectious process nonetheless they suggested follow-up with her usual
[place] technical solutions director as she was due for a colonoscopic evaluation as an outpatient in this timetable and also counseled on importance of follow-up she will continue her course of antibiotic therapy in the form of cefdinir 300 mg twice a
day and metronidazole 500 mg twice a day for next 7 days but the medical service and the GI service saw the patient and examined the patient on date of her discharge considered stable for discharge
Discharge Plan
-
Patient Disposition: Home (Routine Discharge)
Discharge Diagnosis/Procedures: Acute infectious colitis
Negative stool cultures
Diet: Low Residue
Activity: No restrictions
Driving Restrictions: As prior to admission
Referrals:
Rodri Gibbs V., DO [Family Provider] - in less than 1 week
Prescriptions:
New
cefdinir 300 mg capsule
300 mg PO BID Qty: 14 0RF
metronidazole 500 mg tablet
500 mg PO BID Qty: 14 0RF
Continued
lisinopril 20 mg Tablet
20 mg PO DAILY
Discharge Orders:
Discharge Patient (As Directed); Ordered 07/27/23
Ordered By: Jaime Ferris
== END 2023-07-27 11:54 | disposition home or self-care (01) | DRG 872 ==
LOC: 3 WEST ACU 16:46
PROVIDERS: Hospitalist; Physician Assistant; ADMITTING PHYSICIAN Internal Medicine; ATTENDING PHYSICIAN Internal Medicine; CONSULT PHYSICIAN Internal Medicine Gastroenterology; EMERGENCY PHYSICIAN Emergency Medicine; FAMILY PHYSICIAN Family Medicine
DX: A41.9 Sepsis, unspecified organism (principal); A09 Infectious gastroenteritis and colitis, unspecified; I10 Essential (primary) hypertension
CPT/HCPCS: 74177; 80048; 80053; 83605; 83690; 83735; 84703; 85025; 85027; 87045; 87046; 87324; 87427; 87449; 87798; 96361; 96365; 96375; 99285; J3480; Q9967